=== PATIENT | female | born 1980 | race Caucasian/White ===

== ENCOUNTER 2019-04-09 08:58 | Outpatient (CLI) | payer BC ==
--- NOTE | 2019-04-09 11:15 | RAD ---
RADIOGRAPH RIGHT ANKLE 3 VIEWS: Date: 04/09/19 HISTORY: 38-year-old female with right ankle pain without trauma. FINDINGS: Ankle mortise is congruent. Talar dome is maintained. No significant degenerative changes. No fractur e or destructive osseous lesion. IMPRESSION: Normal. POS: [facility]
== END 2019-04-09 08:59 | disposition home or self-care (01) ==
LOC: SCSRAD 08:58
PROVIDERS: ATTEND Family Medicine
DX: M25.572 Pain in left ankle and joints of left foot (principal)